=== PATIENT | female | born 1980 | race Two or more races ===

== ENCOUNTER 2016-11-17 20:31 | Emergency (ER) | payer OTHER ==
[2016-11-17 20:35] VITALS: BP 131/92
[2016-11-17] MEDS ORDERED: LIDOCAINE WITH 8.4% SOD BICARB 3 ML DISP.SYRIN. IJ ONE ×2 (20:41→21:00)
--- NOTE | 2016-11-17 21:07 | PHYS DOC ---
Past History Past Medical History: No Pertinent History Past Surgical History: No Surgical History Alcohol Use: Rarely Drug Use: None Adult General Chief Complaint Chief Complaint: LACERATION/AVULSION HPI HPI 36-year-old female presenting to the emergency department today with syncope and a laceration under her chin. She reports prior to passing out she was breathing really hard to blow on coals preparing dinner. She then felt lightheaded, stood up, and passed out. She denies palpitations. She denies family history of sudden . She denies biting her tongue or urinating herself. She sustained a laceration to her chin. She has mild pain under her chin that is sharp intermittent nonradiating and without alleviating factors. Review of systems is negative for chest pain shortness of breath neck pain fevers chills vision changes numbness weakness or tingling. All other review of systems is negative unless otherwise noted in history of present illness. ED course: 36-year-old female presenting to the emergency department with a syncopal episode sustaining a laceration to her chin. Vital signs were unremarkable. It is likely that the patient had a vasovagal episode. EKG shows no signs of Brugada syndrome, QT is within normal limits, no evidence of hypertrophic obstructive cardiomyopathy. Laceration was repaired with sutures. I recommend sutures be removed in about 5 days. The patient was then discharged home in stable condition to follow up with their primary care physician over the next 2-3 days. They were to return if their symptoms worsened or if they were concerned for any reason. [id number] discharge instructions and return precautions were given. Patient's questions were answered to their satisfaction. Patient is comfortable plan. Review of Systems Review of Systems SEE ABOVE. Current Medications Current Medications Current Medications Medications (Trade) Dose Ordered Sig/[facility] Start Time Stop Time Status Last Admin Dose Admin Lidocaine/Sodium Bicarbonate (Buffered Lidocaine 1%) 3 ml 1X ONCE 11/17/16 21:00 11/17/16 21:01 UNV Physical Exam Physical Exam Constitutional: Well developed, well nourished, no acute distress, non-toxic appearance. [] HENT: Normocephalic, bilateral external ears normal, oropharynx moist, no oral exudates, nose normal. [] 1.5 cm laceration under the chin. No other injuries noted. No depressed skull fractures or abrasions to the head or neck. Eyes: PERRLA, EOMI, conjunctiva normal, no discharge. [] Neck: Normal range of motion, no tenderness, supple, no stridor. [] Cardiovascular:Heart rate regular rhythm, no murmur [] Lungs & Thorax: Bilateral breath sounds clear to auscultation [] Abdomen: Bowel sounds normal, soft, no tenderness, no masses, no pulsatile masses. [] Skin: Warm, dry, no erythema, no rash. [] Back: No tenderness, no CVA tenderness. [] Extremities: No tenderness, no cyanosis, no clubbing, ROM intact, no edema. [] Neurologic: Alert and oriented X 3, normal motor function, normal sensory function, no focal deficits noted. [] Psychologic: Affect normal, judgement normal, mood normal. [] EKG EKG [] Radiology/Procedures Radiology/Procedures [] Course & Med Decision Making Course & Med Decision Making Pertinent Labs and Imaging studies reviewed. (See chart for details) [] Dragon Disclaimer Dragon Disclaimer This chart was dictated in whole or in part using Voice Recognition software in a busy, high-work load, and often noisy Emergency Department environment. It may contain unintended and wholly unrecognized errors or omissions. Departure Departure: Impression: Primary Impression: Syncope Additional Impression: Chin laceration Disposition: 01 HOME, SELF-CARE Condition: STABLE Referrals: PCP,NAYELI (PCP) Patient Instructions: Facial Laceration Additional Instructions: Thank you for allowing us to participate in your care today. Followup with your primary care physician in 5 days for suture removal. Call your Primary Doctor tomorrow and inform them of your visit today. If you do not have a primary care provider you can ask for a list of our primary care providers. Return to the emergency department you have any new or concerning findings. This should be evaluated by the primary care physician and any necessary consulting services for continued management within a few days after discharge. Return to emergency room if you have any new or concerning symptoms including but not limited to fever, chills, nausea, vomiting, intractable pain, any new rashes, chest pain, shortness of air, uncontrolled bleeding, difficulty breathing, and/or vision loss. Problem Qualifiers JIL DRAKE MD Nov 17, 2016 21:07
[2016-11-17] MEDS ORDERED: DIPHTH,PERTUSS(ACELL),TET TOX 0.5 ML DISP.SYRIN. VAX IM ONE ×2 (21:12→21:15)
--- NOTE | 2016-11-18 06:18 | EKG ---
[address] [address] Test Date: 2016-11-17 Test Time: 21:06:16 Pat Name: SANCHEZ SCHOFIELD Department: Room: Gender: F Loop Sewer: BONNIE : 1980 Requested By: JIL DRAKE Order Number: [id number] Reading MD: Scott Elena Measurements Intervals [place] Rate: 62 P: 62 UT: 170 QRS: 67 QRSD: 86 T: 59 QT: 366 QTc: 373 Interpretive Statements SINUS RHYTHM INCOMPLETE RIGHT BUNDLE BRANCH BLOCK Electronically Signed On 11-20-2016 8:44:52 CDT by Scott Elena
== END 2016-11-17 21:23 | disposition home or self-care (01) ==
LOC: ER 20:31
DX: S01.81XA Laceration without foreign body of other part of head, initial encounter (principal); R55 Syncope and collapse; X58.XXXA Exposure to other specified factors, initial encounter; Y93.89 Activity, other specified; Y99.8 Other external cause status; Y92.89 Other specified places as the place of occurrence of the external cause
CPT/HCPCS: 12011; 81025; 90471; 90715; 93005; 99283-25